=== PATIENT | female | born 1975 | race African-American/Black ===

== ENCOUNTER → 2020-05-14 | Outpatient (CLI) | payer BC ==
[2020-05-14 08:15] LABS: BASOPHILS % 0.9 % (0.0-2.0); HEMATOCRIT. 37.9 % (36.0-48.0); HEMOGLOBIN. 12.3 g/dL (12.0-16.0); LYMPHOCYTES % 32.4 % (20.0-50.0); MEAN CORPUSCULAR HEMOGLOBIN 24.4 pg (28.0-32.0); MEAN CORPUSCULAR VOLUME 75.5 fL (81.0-99.0); MEAN PLATELET VOLUME 7.1 fl (7.4-10.4); MONOCYTES % 5.7 % (2.0-8.0); PLATELET 374 x1000/uL (130-400); RED BLOOD CELL COUNT 5.02 mill/uL (4.2-5.4); RED CELL DISTRIBUTION WIDTH 18.7 % (11.6-14.6)
[2020-05-14 08:21] LABS: CLARITY URINE CLEAR (CLEAR); COLOR URINE YELLOW (YELLOW); KETONES URINE NEGATIVE (NEGATIVE); LEUKOCYTE ESTERASE URINE 1+ (NEGATIVE); NITRITE URINE NEGATIVE (NEGATIVE); OCCULT BLOOD URINE NEGATIVE (NEGATIVE); PROTEIN URINE TRACE (NEGATIVE); SPECIFIC GRAVITY URINE 1.027 (1.005-1.030); UROBILINOGEN URINE 0.2 E.U./dL (0.2-1.0)
[2020-05-14 08:48] LABS: CHLORIDE 120 mEq/L (98-107); FOLIC ACID (FOLATE) SERUM 7.5 ng/mL (>5.38)
[2020-05-14 08:56] LABS: LDL CHOLESTEROL 65 mg/dL (5-100)
[2020-05-14 08:58] LABS: HDL CHOLESTEROL 66 mg/dL (40-59); T4 FREE 0.98 ng/dL (0.76-1.46)
[2020-05-15 10:06] LABS: VITAMIN D 25-OH 14.9 ng/mL (30.0-100.0)
[2020-05-15 15:07] LABS: THYROID PEROXIDASE ANTIBODY < 9 IU/mL (0-34)
== END | disposition home or self-care (01) ==
LOC: LAB 07:50
PROVIDERS: ATTEND Family Medicine
DX: Z13.29 Encounter for screening for other suspected endocrine disorder (principal); R53.83 Other fatigue; I10 Essential (primary) hypertension; E55.9 Vitamin D deficiency, unspecified; E03.9 Hypothyroidism, unspecified
CPT/HCPCS: 36415; 80053; 80061; 81003; 82306; 82607; 82746; 84439; 84443; 84481; 85025; 86376

== ENCOUNTER → 2021-01-20 | Outpatient (CLI) | payer BC ==
[2021-01-20 11:46] LABS: BASOPHILS % 0.8 % (0.0-2.0); HEMATOCRIT. 34.9 % (36.0-48.0); LYMPHOCYTES % 21.9 % (20.0-50.0); MEAN CORPUSCULAR VOLUME 92.8 fL (81.0-99.0); NEUTROPHILS % 69.3 % (40.0-76.0); PLATELET 223 x1000/uL (130-400); RED BLOOD CELL COUNT 3.76 mill/uL (4.2-5.4); RED CELL DISTRIBUTION WIDTH 13.7 % (11.6-14.6)
[2021-01-20 11:53] LABS: CHLORIDE 107 mEq/L (98-107)
[2021-01-20 12:00] LABS: HAPTOGLOBIN <31.0 mg/dL (30-200)
[2021-01-23 09:06] LABS: ANTI-CARDIOLIPIN AB IGA < 9 APL U/mL (0-11); ANTI-CARDIOLIPIN AB IGG < 9 GPL U/mL (0-14); ANTI-CARDIOLIPIN AB IGM < 9 MPL U/mL (0-12); DRVVT LA 35.9 sec (0.0-47.0); LUPUS ANTICOAG INTERPRETATION Comment: (.); PTT-LA 35.1 sec (0.0-51.9)
== END | disposition home or self-care (01) ==
LOC: LAB 10:36
PROVIDERS: ATTEND Specialist
DX: D59.3 Hemolytic-uremic syndrome (principal)
CPT/HCPCS: 36415; 80053; 83010; 83615; 85025; 85044; 85613; 85732; 86147; 86160; 86880

== ENCOUNTER → 2021-04-08 | Outpatient (CLI) | payer BC ==
[2021-04-08 13:08] LABS: BASOPHILS % 0.5 % (0.0-2.0); EOSINOPHILS % 0.9 % (0.0-5.0); HEMATOCRIT. 36.5 % (36.0-48.0); HEMOGLOBIN. 12.6 g/dL (12.0-16.0); LYMPHOCYTES % 21.6 % (20.0-50.0); MEAN CORPUSCULAR HEMOGLOBIN 29.5 pg (28.0-32.0); MEAN CORPUSCULAR VOLUME 85.8 fL (81.0-99.0); MEAN PLATELET VOLUME 7.2 fl (7.4-10.4); MONOCYTES % 5.5 % (2.0-8.0); NEUTROPHILS % 71.5 % (40.0-76.0); PLATELET 207 x1000/uL (130-400); RED BLOOD CELL COUNT 4.26 mill/uL (4.2-5.4); RED CELL DISTRIBUTION WIDTH 15.3 % (11.6-14.6)
[2021-04-08 13:11] LABS: CHLORIDE 111 mEq/L (98-107)
[2021-04-08 13:27] LABS: HAPTOGLOBIN <31.0 mg/dL (30-200)
== END | disposition home or self-care (01) ==
LOC: LAB 08:12
PROVIDERS: ATTEND Internal Medicine Hematology & Oncology
DX: D59.3 Hemolytic-uremic syndrome (principal)
CPT/HCPCS: 36415; 80053; 83010; 83615; 85025; 85044

== ENCOUNTER → 2021-04-14 | Outpatient (CLI) | payer BC, MEDICAID ==
[2021-04-14 08:24] LABS: BASOPHILS % 0.6 % (0.0-2.0); EOSINOPHILS % 2.9 % (0.0-5.0); HEMATOCRIT. 34.2 % (36.0-48.0); HEMOGLOBIN. 11.9 g/dL (12.0-16.0); LYMPHOCYTES % 22.4 % (20.0-50.0); MEAN CORPUSCULAR HEMOGLOBIN 29.7 pg (28.0-32.0); MEAN CORPUSCULAR VOLUME 85.6 fL (81.0-99.0); MEAN PLATELET VOLUME 6.5 fl (7.4-10.4); MONOCYTES % 6.3 % (2.0-8.0); NEUTROPHILS % 67.8 % (40.0-76.0); PLATELET 205 x1000/uL (130-400); RED BLOOD CELL COUNT 3.99 mill/uL (4.2-5.4)
[2021-04-14 08:36] LABS: CHLORIDE 110 mEq/L (98-107)
[2021-04-14 08:45] LABS: PHOSPHORUS 2.9 mg/dL (2.5-4.9)
== END | disposition home or self-care (01) ==
LOC: LAB 08:04
PROVIDERS: ATTEND Specialist
DX: N18.4 Chronic kidney disease, stage 4 (severe) (principal)
CPT/HCPCS: 36415; 80053; 84100; 85025

== ENCOUNTER → 2021-05-05 | Outpatient (CLI) | payer BC ==
[2021-05-05 08:42] LABS: BASOPHILS % 0.6 % (0.0-2.0); EOSINOPHILS % 2.9 % (0.0-5.0); HEMATOCRIT. 33.2 % (36.0-48.0); HEMOGLOBIN. 11.7 g/dL (12.0-16.0); LYMPHOCYTES % 21.1 % (20.0-50.0); MEAN CORPUSCULAR HEMOGLOBIN 30.6 pg (28.0-32.0); MONOCYTES % 6.2 % (2.0-8.0); NEUTROPHILS % 69.2 % (40.0-76.0); PLATELET 219 x1000/uL (130-400); RED BLOOD CELL COUNT 3.82 mill/uL (4.2-5.4); RED CELL DISTRIBUTION WIDTH 15.2 % (11.6-14.6)
[2021-05-05 09:03] LABS: CHLORIDE 110 mEq/L (98-107)
[2021-05-05 09:14] LABS: HAPTOGLOBIN <31.0 mg/dL (30-200)
== END | disposition home or self-care (01) ==
LOC: LAB 07:59
PROVIDERS: ATTEND Family Medicine
DX: D59.3 Hemolytic-uremic syndrome (principal)
CPT/HCPCS: 36415; 80053; 83010; 83615; 85025; 85044

== ENCOUNTER → 2021-06-15 | Outpatient (CLI) | payer BC ==
[2021-06-15 08:24] LABS: BASOPHILS % 0.4 % (0.0-2.0); EOSINOPHILS % 2.2 % (0.0-5.0); HEMATOCRIT. 35.6 % (36.0-48.0); HEMOGLOBIN. 12.2 g/dL (12.0-16.0); LYMPHOCYTES % 18.1 % (20.0-50.0); MEAN CORPUSCULAR HEMOGLOBIN 30.1 pg (28.0-32.0); MEAN CORPUSCULAR VOLUME 87.5 fL (81.0-99.0); MEAN PLATELET VOLUME 6.9 fl (7.4-10.4); MONOCYTES % 6.1 % (2.0-8.0); NEUTROPHILS % 73.2 % (40.0-76.0); PLATELET 216 x1000/uL (130-400); RED BLOOD CELL COUNT 4.07 mill/uL (4.2-5.4); RED CELL DISTRIBUTION WIDTH 14.6 % (11.6-14.6)
[2021-06-15 08:32] LABS: CLARITY URINE CLEAR (CLEAR); COLOR URINE YELLOW (YELLOW); KETONES URINE NEGATIVE (NEGATIVE); LEUKOCYTE ESTERASE URINE NEGATIVE (NEGATIVE); NITRITE URINE NEGATIVE (NEGATIVE); OCCULT BLOOD URINE NEGATIVE (NEGATIVE); PH URINE 5.5 (4.5-8.0); PROTEIN URINE 2+ (NEGATIVE); SPECIFIC GRAVITY URINE 1.018 (1.005-1.030); UROBILINOGEN URINE 0.2 E.U./dL (0.2-1.0)
== END | disposition home or self-care (01) ==
LOC: LAB 07:45
PROVIDERS: ATTEND Internal Medicine Nephrology
DX: N17.9 Acute kidney failure, unspecified (principal)
CPT/HCPCS: 36415; 80048; 80061; 81003; 82306; 83970; 85025

== ENCOUNTER 2022-01-25 19:33 | Inpatient (IN) | payer BC, MEDICAID ==
[~2022-01-25] VITALS: Ht 170.2 cm; Wt 90.7 kg
[2022-01-25] MEDS ORDERED: LABETALOL HCL VIAL 20 MG/4 ML VIAL IV ONE (20:45)
[2022-01-25 20:53] LABS: BASOPHILS % 0.9 % (0.0-2.0); EOSINOPHILS % 1.5 % (0.0-5.0); HEMATOCRIT. 40.4 % (36.0-48.0); HEMOGLOBIN. 13.9 g/dL (12.0-16.0); LYMPHOCYTES % 16.2 % (20.0-50.0); MEAN CORPUSCULAR HEMOGLOBIN 29.7 pg (28.0-32.0); MEAN CORPUSCULAR VOLUME 86.1 fL (81.0-99.0); MEAN PLATELET VOLUME 7.4 fl (7.4-10.4); MONOCYTES % 4.9 % (2.0-8.0); NEUTROPHILS % 76.5 % (40.0-76.0); PLATELET 244 x1000/uL (130-400); RED BLOOD CELL COUNT 4.69 mill/uL (4.2-5.4); RED CELL DISTRIBUTION WIDTH 14.6 % (11.6-14.6)
[2022-01-25 20:59] LABS: CHLORIDE 106 mEq/L (98-107)
[2022-01-25] MEDS ORDERED: LABETALOL 5MG/ML SYR 20 MG/4 ML SYRINGE IV NR (21:00)
[2022-01-25] MEDS ORDERED: HYDRALAZINE 20MG/ML VIAL IV ONE (21:30)
[2022-01-25] MEDS ORDERED: NALOXONE HCL 0.4MG/ML VIAL IV PRN (23:45)
[2022-01-26] MEDS: CLONIDINE 0.1MG TABLET PO PRN ×2 (04:40→14:35)
[2022-01-26 07:08] LABS: BASOPHILS % 1.2 % (0.0-2.0); EOSINOPHILS % 1.9 % (0.0-5.0); HEMATOCRIT. 38.4 % (36.0-48.0); HEMOGLOBIN. 13.1 g/dL (12.0-16.0); LYMPHOCYTES % 21.9 % (20.0-50.0); MEAN CORPUSCULAR HEMOGLOBIN 29.4 pg (28.0-32.0); MEAN CORPUSCULAR VOLUME 86.3 fL (81.0-99.0); MEAN PLATELET VOLUME 7.3 fl (7.4-10.4); MONOCYTES % 6.4 % (2.0-8.0); NEUTROPHILS % 68.6 % (40.0-76.0); PLATELET 245 x1000/uL (130-400); RED BLOOD CELL COUNT 4.45 mill/uL (4.2-5.4); RED CELL DISTRIBUTION WIDTH 14.4 % (11.6-14.6)
[2022-01-26 07:13] LABS: CHLORIDE 106 mEq/L (98-107)
[2022-01-26] MEDS: HYDROCODONE/ACETAMINOPHEN 5/325MG TABLET PO PRN ×2 (08:07→14:48)
[2022-01-26] MEDS ORDERED: METOPROLOL TARTRATE 50MG TABLET PO SCH (09:00)
[2022-01-26] MEDS ORDERED: POTASSIUM CHLORIDE 20MEQ TABLET SR PO SCH (10:00)
[2022-01-26] MEDS ORDERED: ONDANSETRON HCL 4MG/2ML INJ IV PRN (10:00)
[2022-01-26] MEDS ORDERED: ACETAMINOPHEN 325MG TABLET PO PRN (10:00)
[2022-01-26] MEDS ORDERED: NIFEDIPINE XL 60MG TAB PO SCH (10:00)
[2022-01-26 14:00] VITALS: BP 174/115
[2022-01-26 15:00] VITALS: BP 174/115
[2022-01-26 16:53] VITALS: BP 140/85
[2022-01-26] MEDS ORDERED: HYDRALAZINE HCL 100MG TABLET PO NR (18:15)
[2022-01-26 20:00] VITALS: BP 153/90
[2022-01-26] MEDS ORDERED: LOSA25TA3 MT (20:24)
[2022-01-26] MEDS ORDERED: CLON0.1T PO (20:24)
[2022-01-26] MEDS ORDERED: DOXA1TAB2 PO (20:24)
[2022-01-26] MEDS ORDERED: VALS160T28 PO (20:24)
[2022-01-26] MEDS ORDERED: FURO-152 PO (20:24)
[2022-01-26] MEDS: METOPROLOL TARTRATE 100MG TABLET PO SCH (22:26)
[2022-01-26] MEDS: HYDRALAZINE HCL 100MG TABLET PO SCH (22:27)
[2022-01-26] MEDS: NIFEDIPINE XL 60MG TAB PO SCH (22:27)
[2022-01-27] VITALS: BP 144/96
[2022-01-27 03:21] LABS: CLARITY URINE CLEAR (CLEAR); COLOR URINE YELLOW (YELLOW); KETONES URINE NEGATIVE (NEGATIVE); LEUKOCYTE ESTERASE URINE 2+ (NEGATIVE); NITRITE URINE NEGATIVE (NEGATIVE); OCCULT BLOOD URINE NEGATIVE (NEGATIVE); PROTEIN URINE 2+ (NEGATIVE); SPECIFIC GRAVITY URINE 1.012 (1.005-1.030); UROBILINOGEN URINE 0.2 E.U./dL (0.2-1.0)
[2022-01-27 04:00] VITALS: BP 128/77
[2022-01-27] MEDS: HYDRALAZINE HCL 100MG TABLET PO SCH ×2 (06:43→15:21)
[2022-01-27 08:00] VITALS: BP 135/74
[2022-01-27] MEDS: HYDROCODONE/ACETAMINOPHEN 5/325MG TABLET PO PRN (08:34)
[2022-01-27] MEDS: METOPROLOL TARTRATE 100MG TABLET PO SCH (09:27)
[2022-01-27] MEDS: NIFEDIPINE XL 60MG TAB PO SCH (09:27)
[2022-01-27] MEDS ORDERED: CEFTRIAXONE 1 G PREMIX 50 ML IV SCH (10:00)
[2022-01-27] MEDS ORDERED: CEFTRIAXONE 1,000 MG in DEXTROSE 5% WATER 50 ML IV SCH (11:00)
[2022-01-27 12:00] VITALS: BP 138/70
[2022-01-27 16:00] VITALS: BP 128/78
[2022-01-27] MEDS ORDERED: NIFE-32 PO (16:35)
[2022-01-27] MEDS ORDERED: CEPH500T MT (16:35)
[2022-01-27] MEDS ORDERED: HYDR100T26 PO (16:35)
[2022-01-27] MEDS ORDERED: METO100T16 PO (16:35)
[2022-01-27 17:27] VITALS: BP 128/78
== END 2022-01-27 18:30 | disposition home or self-care (01) | DRG 305 ==
LOC: ER 19:33 → MICUSO 22:09 → 6WST 01-26 13:33
PROVIDERS: ADMIT Internal Medicine Nephrology; ATTEND Internal Medicine Nephrology
DX: I16.0 Hypertensive urgency (principal); N17.9 Acute kidney failure, unspecified; C95.90 Leukemia, unspecified not having achieved remission; N39.0 Urinary tract infection, site not specified; I12.9 Hypertensive chronic kidney disease with stage 1 through stage 4 chronic kidney disease, or unspecified chronic kidney disease; N18.9 Chronic kidney disease, unspecified; Z20.822 Contact with and (suspected) exposure to COVID-19
CPT/HCPCS: 36415; 71045; 80053; 81003; 83880; 84484; 85025; 87426; 93005; 93970; 99291; J0360; J0696; J3490; J7040; J7060

== ENCOUNTER → 2022-02-17 | Outpatient (CLI) | payer BC, MEDICAID ==
[~2022-02-17] MED LIST: CEPH500T MT; FURO-152 PO; HYDR100T26 PO; METO100T16 PO; NIFE-32 PO
[2022-02-17 10:36] LABS: T4 FREE 1.09 ng/dL (0.76-1.46)
== END | disposition home or self-care (01) ==
LOC: LAB 09:54
PROVIDERS: ATTEND Family Medicine
DX: E03.8 Other specified hypothyroidism (principal)
CPT/HCPCS: 36415; 83036; 84439; 84443; 84481; 86376

== ENCOUNTER → 2022-05-26 | Outpatient (CLI) | payer BC, MEDICAID ==
[2022-05-26 12:09] LABS: BASOPHILS % 0.9 % (0.0-2.0); EOSINOPHILS % 3.6 % (0.0-5.0); HEMATOCRIT. 41.8 % (36.0-48.0); HEMOGLOBIN. 14.1 g/dL (12.0-16.0); LYMPHOCYTES % 24.7 % (20.0-50.0); MEAN CORPUSCULAR HEMOGLOBIN 29.4 pg (28.0-32.0); MEAN PLATELET VOLUME 7.5 fl (7.4-10.4); MONOCYTES % 6.5 % (2.0-8.0); NEUTROPHILS % 64.3 % (40.0-76.0); PLATELET 250 x1000/uL (130-400); RED BLOOD CELL COUNT 4.81 mill/uL (4.2-5.4); RED CELL DISTRIBUTION WIDTH 14.9 % (11.6-14.6)
[2022-05-26 12:16] LABS: CHLORIDE 110 mEq/L (98-107)
[2022-05-26 12:32] LABS: HDL CHOLESTEROL 101 mg/dL (40-59); LDL CHOLESTEROL 77 mg/dL (5-100); T4 FREE 1.05 ng/dL (0.76-1.46)
== END | disposition home or self-care (01) ==
LOC: LAB 11:46
PROVIDERS: ATTEND Family Medicine
DX: I10 Essential (primary) hypertension (principal); E03.9 Hypothyroidism, unspecified; D55.9 Anemia due to enzyme disorder, unspecified
CPT/HCPCS: 36415; 80053; 80061; 83036; 84439; 84443; 84481; 85025; 86376